=== PATIENT | female | born 1995 | race Caucasian/White ===

== ENCOUNTER 2021-07-28 20:59 | Emergency (ER) | payer MEDICAID ==
--- OUTSIDE RECORDS SUMMARY | 2021-07-28 21:03 | XMS REPORT | Clinical Summary ---
Author Author [facility] Organization [facility] Address Unknown Phone Unavailable Care Team Providers Care Tire Mold Engraver Name Role Phone Dpt Prateek, Pediatrics PCP Jacklyn Moore MD Unavailable Source Comments Some departments are not documenting in the electronic medical record. If you d o not see the information that you expected, contact Release of Information in [facility] Information Management department at [phone] for further assistan ce in locating additional records.[facility] Allergies No known active allergies Medications No known medications Active Problems Not on file Encounters Care Team Description Date Type Specialty Brett De La Garza MD Arrived 07/26/2021 Hospital Radiology Encounter Brett De La Garza MD Closed displaced fracture of head of lef t radius, initial encounter (Primary Dx) 07/26/2021 Office Visit Orthopedic Surgery 07/26/2021 Travel Brett De La Garza MD Left elbow pain (Primary Dx) 07/25/2021 Orders Only Orthopedic Surgery from Last 3 Months Social History Date Tobacco Use Types Packs/Day Years Used Never Assessed Sex Assigned at Date Recorded Not on file Date Recorded COVID-19 Exposure Response 07/26/2021 1:22 PM CORN HUSKER In the last month, have you been in contact with No / Unsure someone who was confirmed or suspected to have Coronavirus / COVID-19? Last Filed Vital Signs Reading Time Taken Comments Vital Sign 117/68 07/18/2011 4:52 PM CORN HUSKER Blood Pressure 85 07/18/2011 4:52 PM CORN HUSKER Pulse 36.2 C (97.2 F) 12/21/2009 4:53 PM CDT Temperature 16 07/18/2011 4:52 PM CORN HUSKER Respiratory Rate - - Oxygen Saturation - - Inhaled Oxygen Concentration 145.6 kg (321 lb) 07/26/2021 1:46 PM CORN HUSKER Weight 177.8 cm (5' 10") 07/26/2021 1:46 PM CORN HUSKER Height 46.06 07/26/2021 1:46 PM CORN HUSKER Body Mass Index Plan of Treatment Health Maintenance Due Date Last Done Comments HIV SCREENING 2011 DTAP/TDAP VACCINES (1 - 2014 Tdap) HEPATITIS C SCREENING 2014 PHYSICAL (COMPREHENSIVE) 2014 EXAM CERVICAL CANCER SCREENING 2017 INFLUENZA VACCINE 02/12/2021 HPV VACCINES Completed 09/01/2008, 03/24/2008, 07/29/2007 Procedures Comments Procedure Name Priority Date/Time Associated Diag nosis ELBOW MIN 3 VIEWS LEFT Routine 07/26/2021 Left el bow pain 1:52 PM CORN HUSKER from Last 3 Months Results * ELBOW MIN 3 VIEWS LEFT (07/26/2021 1:52 PM CORN HUSKER) Modality Anatomical Region Laterality Computed Radiography Elbow Left Specimen Impressions [facility] RESULTS - 07/26/2021 2:47 PM CORN HUSKER Findings and Impression: 1. Minimally displaced fracture of the radial head neck junction with a small elbow joint effusion. Fracture appears subacute with early healing. 2. Visualized joint spaces are maintai amilcar and normally aligned. By my electronic signature, I attest that I have personally reviewed the images for this examination and formulated the interpretations and opinions expressed in this report Finalized by Del Shepherd M.D. on 07/26/2021 2:47 PM. Dictated by Az Ngo D.O. on 07/26/2021 2:18 PM. Narrative [facility] RESULTS - 07/26/2021 2:47 PM CORN HUSKER ELBOW MIN 3 VIEWS LEFT Technique: 3 views of the left elbow were obtained. Clinical indication: Left elbow pain. Comparison: None Procedure Note Del Shepherd MD - 07/26/2021 ELBOW MIN 3 VIEWS LEFT Technique: 3 views of the left elbow were obtained. Clinical indication: Left elbow pain. Comparison: None IMPRESSION Findings and Impression: 1. Minimally displaced fracture of the radial head neck junction with a small elbow joint effusion. Fracture appears subacute with early healing. 2. Visualized joint spaces are maintain ed and normally aligned. By my electronic signature, I attest that I have personally reviewed the images for this examination and formulated the interpretations and opinions expressed in this report Finalized by Del Shepherd M.D. on 07/26/2021 2:47 PM. Dictated by Az Ngo D.O. on 07/26/2021 2:18 PM. Performing Organization Address City/State/ZIP Code P valentine Number [facility] RESULTS from Last 3 Months Insurance Type Payer Benefit Subscriber ID Effective Phone Address Plan / Dates Group [employer]ETNA MEDICAID AETNA [id number] 2020-P [phone] [id number] [place] [address], [place] [address] Advance Directives Patient Quantitative Consultant Explanation Type Date Recorded Advance Directive/DPOA Care Teams Start Date End Date Tire Mold Engraver Relationship Specialty 03/21/10 Dpt Prateek, Pediatrics PCP - General [address] [place] [address] 09/12/12 Jacklyn Moore MD Pediatrics [address] [phone]
--- OUTSIDE RECORDS SUMMARY | 2021-07-28 21:03 | XMS REPORT | Encounter Summary ---
Author Author [facility] Organization [facility] Address Unknown Phone Unavailable Care Team Providers Care Buck Swamper Name Role Phone Dpt Prateek Pediatrics PCP Jacklyn Moore MD Unavailable Reason for Referral * Radiology Services (Routine) - Pending Review Diagnoses / Procedures Referred By Contact Referred To Conta ct Specialty Diagnoses Left elbow pain Procedures ELBOW MIN 3 VIEWS LEFT Brett De La Garza MD [address] [facility] [address] Radiology Referral ID Status Reason Start Date Expiration Visits Vi sits Date Requested Authorized [id number] Pending 07/25/2021 07/25/2022 1 1 Review H MOLDER Reason for Visit * Radiology Services (Routine) - Pending Review Diagnoses / Procedures Referred By Contact Referred To Conta ct Specialty Diagnoses Left elbow pain Procedures ELBOW MIN 3 VIEWS LEFT Brett De La Garza MD [address] [facility] [address] Radiology Referral ID Status Reason Start Date Expiration Visits Vi sits Date Requested Authorized [id number] Pending 07/25/2021 07/25/2022 1 1 Review Encounter Details Care Team Description Date Type Department Brett De La Garza MD [address] [facility] [address] Arrived 07/26/2021 Hospital Imaging: Main [place] [facility], Encounter [facility] [address] [facility] [place] [address] Social History Date Tobacco Use Types Packs/Day Years Used Never Assessed Sex Assigned at Date Recorded Not on file Date Recorded COVID-19 Exposure Response 07/26/2021 1:22 PM DOUGH MOLDER In the last month, have you been in contact with No / Unsure someone who was confirmed or suspected to have Coronavirus / COVID-19? documented as of this encounter Plan of Treatment Not on filedocumented as of this encounter Procedures Comments Procedure Name Priority Date/Time Associated Diag nosis ELBOW MIN 3 VIEWS LEFT Routine 07/26/2021 Left el bow pain 1:52 PM DOUGH MOLDER documented in this encounter Results * ELBOW MIN 3 VIEWS LEFT (07/26/2021 1:52 PM DOUGH MOLDER) Modality Anatomical Region Laterality Computed Radiography Elbow Left Specimen Impressions [facility] RESULTS - 07/26/2021 2:47 PM DOUGH MOLDER Findings and Impression: 1. Minimally displaced fracture [...] [facility] RESULTS - 07/26/2021 2:47 PM DOUGH MOLDER ELBOW MIN 3 VIEWS LEFT Technique: 3 [...] Code P valentine Number [facility] RESULTS documented in this encounter Visit Diagnoses Diagnosis Left elbow pain Pain in joint, upper arm documented in this encounter Care Teams Start Date End Date Buck Swamper Relationship Specialty 03/21/10 Dpt Prateek, Pediatrics PCP - General [address] [place] [address] 09/12/12 Jacklyn Moore MD Pediatrics [address] [address] documented as of this encounter
--- OUTSIDE RECORDS SUMMARY | 2021-07-28 21:05 | XMS REPORT | Encounter Summary ---
Author Author [facility] Organization [facility] Address Unknown Phone Unavailable Care Team Providers Care Boat Rental Clerk Name Role Phone Dpt Prateek Pediatrics PCP Jacklyn Moore MD Unavailable Reason for Referral * Radiology Services (Routine) - Pending Review Diagnoses / Procedures Referred By Contact Referred To Conta ct Specialty Diagnoses Left elbow pain Procedures ELBOW MIN 3 VIEWS LEFT Brett De La Garza MD [address] [facility] [address] [place] [id number] Radiology Referral ID Status Reason Start Date Expiration Visits Vi sits Date Requested Authorized [id number] Pending 07/25/2021 07/25/2022 1 1 Review NUE CYCLE ADMINISTRATOR Encounter Details Care Team Description Date Type Department Brett De La Garza MD [address] [place] [address] [address] [place] [phone] Left elbow pain (Primary Dx) 07/25/2021 Orders Only Orthopedics and Spo rts Medicine: Main [place], [facility] [address] [place] [id number] Social History Date Tobacco Use Types Packs/Day Years Used Never Assessed Sex Assigned at Date Recorded Not on file documented as of this encounter Plan of Treatment Not on filedocumented as of this encounter Results * ELBOW MIN 3 VIEWS LEFT (07/26/2021 1:52 PM REVENUE CYCLE ADMINISTRATOR) Modality Anatomical Region Laterality Computed Radiography Elbow Left Specimen Impressions [facility] RESULTS - 07/26/2021 2:47 PM REVENUE CYCLE ADMINISTRATOR Findings and Impression: 1. Minimally displaced fracture [...] [facility] RESULTS - 07/26/2021 2:47 PM REVENUE CYCLE ADMINISTRATOR ELBOW MIN 3 VIEWS LEFT Technique: 3 [...] on 07/26/2021 2:18 PM. Performing Organization Address City/[facility] Code P valentine Number [facility] RESULTS documented in this encounter Visit Diagnoses Diagnosis Left elbow pain - Primary Pain in joint, upper arm Left elbow pain Pain in joint, upper arm documented in this encounter Care Teams Start Date End Date Boat Rental Clerk Relationship Specialty 03/21/10 Dpt Prateek Pediatrics PCP - General [address] [place] [address] 09/12/12 Jacklyn Moore MD Pediatrics [address] [phone] documented as of this encounter
--- OUTSIDE RECORDS SUMMARY | 2021-07-28 21:05 | XMS REPORT | Encounter Summary ---
Author Author [facility] Organization [facility] Address Unknown Phone Unavailable Care Team Providers Care Inspector Wire Products Name Role Phone Dpt Prateek, Pediatrics PCP Jacklyn Moore MD Unavailable Reason for Visit * Reason Comments Elbow Pain Left * Consult, Test & Treat (Routine) - Pending Review Diagnoses / Procedures Referred By Contact Referred To Conta ct Specialty Referral ID Status Reason Start Date Expiration Visits Vi sits Date Requested Authorized [id number] Pending 06/30/2021 06/30/2022 1 1 Review Encounter Details Care Team Description Date Type Department Brett De La Garza MD [address] [facility] [address] [place] [address] Closed displaced fracture of head of lef t radius, initial encounter (Primary Dx) 07/26/2021 Office Visit Orthopedics and Spo rts Medicine: Main [place], [facility] [address] [place] [address] Social History Date Tobacco Use Types Packs/Day Years Used Never Assessed Sex Assigned at Date Recorded Not on file Date Recorded COVID-19 Exposure Response 07/26/2021 1:22 PM PAINTER MAINTENANCE In the last month, have you been in contact with No / Unsure someone who was confirmed or suspected to have Coronavirus / COVID-19? documented as of this encounter Last Filed Vital Signs Reading Time Taken Comments Vital Sign - - Blood Pressure - - Pulse - - Temperature - - Respiratory Rate - - Oxygen Saturation - - Inhaled Oxygen Concentration 145.6 kg (321 lb) 07/26/2021 1:46 PM PAINTER MAINTENANCE Weight 177.8 cm (5' 10") 07/26/2021 1:46 PM PAINTER MAINTENANCE Height 46.06 07/26/2021 1:46 PM PAINTER MAINTENANCE Body Mass Index documented in this encounter Progress Notes * Brett De La Garza MD - 07/26/2021 2:00 PM PAINTER MAINTENANCE Chief Complaint Patient presents with Elbow Pain Left History of Present Illness: 26F w/ no significant PMH who presents to clinic today to be evaluated for L rad ial head fx after a fall 1 month ago. Pt fell down 3 stairs onto her left elbow. Immediate left elbow pain. No pain elsewhere. Denies hitting head. Seen at an [facility] facility where she was diagnosed with L radial head fx. Had numbness,ting ling after fall in her left ring and long fingers but all resolved 2 weeks ago. Was given a sling but hasn't needed it. Has decreased weight bearing due to pain in left elbow. The following portions of the patient's history were reviewed and updated as mary ropriate. Past Medical History: No past medical history on file. Past Surgical History: No past surgical history on file. Family History: No family history on file. Social History: Social History Socioeconomic History Marital status: Single Spouse name: Not on file Number of children: Not on file Years of education: Not on file Highest education level: Not on file Occupational History Not on file Tobacco Use Smoking status: Not on file Substance and Sexual Activity Alcohol use: Not on file Drug use: Not on file Sexual activity: Not on file Other Topics Concern Not on file Social History Narrative Not on file Current Medications: currently has no medications in their medication list. Allergies: has No Known Allergies. Review of Systems: Review of Systems All other systems reviewed and are negative. General Physical Exam: General/Constitutional:No apparent distress: well-nourished and well developed. Eyes: Sclera nonicteric, conjunctiva clear Respiratory:No shortness of breath or dyspnea Cardiac: No clubbing, cyanosis, or edema Vascular: No edema, swelling or tenderness, except as noted in detailed exam. Integumentary:No impressive skin lesions present, except as noted in detailed ex am. Neuro/Psych: Normal mood and affect, oriented to person, place and time. Musculoskeletal: Normal, except as noted in detailed exam and in HPI. Focused Physical Examination: Ht 177.8 cm (70") | Wt (!) 145.6 kg (321 lb) | BMI 46.06 kg/m The patient is alert and orientated to person, place, and time, is in no acute d istress, and is cooperative with the examination. Normocephalic, PERRLA, non-lab ored breathing. The left elbow has an intact soft tissue envelope. There is tenderness over the radiocapitellar joint and the radial head. No crepitance to ROM. No evidence of instability to coronal plane stress. No tenderness to palpation medially over the medial epicondyle. Biceps and Triceps are palpable and grossly intact. Pronation and supination is full. Flexion/Extension is full. Neurologic function is grossly intact to the bilateral upper limb, including Rad ial, Ulnar, Median, AIN, and PIN sensory-motor functions. No evidence of CRPS: n o dystrophic changes, abnormal hair growth, skin sweating. No evidence of dysva scular changes. L elbow evaluated, non tender to palpation, no swelling, no erythema, some tende rness with hyperpronation but full prono/supination present without any mechanical service specialist al block or pain. NVI distally Imaging: minimally displaced L radial head fx with partial progressive interval healing noted Assessment and Plan: 26F w/ no significant PMH who presents to clinic today to be evaluated for L rad ial head fx after a fall 1 month ago -Xrays show interval healing of L radial head fx, patient has full prono/supinat ion. At this time, we recommend weight bearing of 2lbs or less through her left elbow. After 4 weeks, she can being to increase her activety tolerated. This was explained to the pt and she showed understanding of the plan. She does not need to f/u in clinic but if any concerns come up or her symptoms do not resolve or worsen, she should f/u in clinic. She agreed to the plan. Brett De La Garza MD Director Print, Department of Orthopaedic Surgery [facility] TER MAINTENANCE documented in this encounter Plan of Treatment Not on filedocumented as of this encounter Visit Diagnoses Diagnosis Closed displaced fracture of head of le ft radius, initial encounter - Primary documented in this encounter Care Teams Start Date End Date Inspector Wire Products Relationship Specialty 03/21/10 Dpt Ku, Pediatrics PCP - General [facility] [place] [address] 09/12/12 Jacklyn Moore MD Pediatrics [address] [address] documented as of this encounter
--- NOTE | 2021-07-28 21:08 | ED EENT ---
History of Present Illness General Stated Complaint: RT EAR BLEED History of Present Illness Date Seen by Provider: Jul 28, 2021 Time Seen by Provider: 21:02 Initial Comments 26-year-old female presents with concerns for bleeding out of her right ear. She reports that happened this morning when she awoke. That she presented tonight to have it checked out ago still bleeding. She has cotton balls in both the ears because she has a "earwax problem" she states some mild discomfort in the right ear. No fevers chills or other systemic complaints. Allergies and Home Medications Patient Home Medication List Home Medication List Reviewed: Yes Cephalexin (Cephalexin) 500 Mg Tablet, 500 MG PO QID Prescribed by: KARY SOUZA on 07/28/212120 Review of Systems Review of Systems Constitutional: no symptoms reported Ears: See HPI Nose: no symptoms reported Throat: no symptoms reported Respiratory: no symptoms reported Cardiovascular: no symptoms reported Gastrointestinal: no symptoms reported Physical Exam Vital Signs Vital Signs - First Documented 07/28/21 21:02 Temp 36.4 Pulse 88 Resp 18 B/P (MAP) 124/82 (96) Pulse Ox 98 O2 Delivery Room Air Height, Weight, BMI Height: '" Weight: lbs. oz. kg; BMI Method: General Appearance: WD/WN, no apparent distress, obese Eyes: bilateral eye normal inspection Ears: bilateral ear auricle normal, bilateral ear canal normal, bilateral ear TM normal Cardiovascular: normal peripheral pulses Respiratory: no respiratory distress, no accessory muscle use Progress/Results/Core Measures Results/Orders Vital Signs/I&O 07/28/21 07/28/21 21:02 21:09 Temp 36.4 36.4 Pulse 88 88 Resp 18 18 B/P (MAP) 124/82 (96) 124/82 Pulse Ox 98 98 O2 Delivery Room Air Room Air Progress Progress Note : Progress Note When cotton ball was removed from bilateral ears, there was no discoloration or blood on the cotton ball. When looked with otoscope there is no blood in the canal on the TM noted. There was some mild cerumen but TMs were both visualized. As as finishing up patient's discharge paperwork, her significant other asked if I could look at her left great toe. Patient reports that she has had a longstanding ingrown toenail and has gotten some erythema and worsening redness around it. On exam looks as if she is got mild infection near an ingrown nail. Discussed with her that she needs to follow-up with her primary care provider or ham rolling machine operator to have her ingrown nail addressed but we would start her on some Keflex to help with the cellulitis and infection. Patient stable and discharged Departure Impression Primary Impression: Otalgia of right ear Additional Impression: Ingrowing toenail with infection Disposition: 01 HOME, SELF-CARE Condition: Stable Departure-Patient Inst. Patient Instructions: Ingrown Toenail (DC) Add. Discharge Instructions: Use [id number] earwax medication as instructed on package Please refrain from placing any Q-tips or other Follow-up with a ham rolling machine operator or establish care with a primary care provider for further management of your ingrown toenail Scripts Cephalexin (Cephalexin) 500 Mg Tablet 500 MG PO QID, #20 TAB 0 Refills Prov: KARY SOUZA DO 07/28/21 KARY SOUZA DO Jul 28, 2021 21:08
[2021-07-28 21:09] VITALS: BP 124/82
[2021-07-28] MEDS ORDERED: CEPH500T PO (21:21)
== END 2021-07-28 21:23 | disposition home or self-care (01) ==
LOC: ER FS 21:00
DX: H92.01 Otalgia, right ear (principal); L60.0 Ingrowing nail; E66.9 Obesity, unspecified
CPT/HCPCS: 99282

== ENCOUNTER 2021-08-02 23:05 | Emergency (ER) | payer MEDICAID ==
[~2021-08-02] VITALS: Ht 178 cm; Wt 145.8 kg
[~2021-08-02 23:05] MED LIST: CEPH500T PO
--- OUTSIDE RECORDS SUMMARY | 2021-08-02 23:13 | XMS REPORT | Encounter Summary ---
Author Author [facility] Organization [facility] Address Unknown Phone Unavailable Care Team Providers Care Manager Medicare Marketing Name Role Phone Dpiehsa Chandra, Pediatrics PCP Jacklyn Moore MD Unavailable Encounter Details Care Team Description Date Type Department 07/26/2021 Travel Social History Date Tobacco Use Types Packs/Day Years Used Never Assessed Sex Assigned at Date Recorded Not on file Date Recorded COVID-19 Exposure Response 07/26/2021 1:22 PM COLOR PASTE MIXER In the last month, have you been in contact with No / Unsure someone who was confirmed or suspected to have Coronavirus / COVID-19? documented as of this encounter Plan of Treatment Not on filedocumented as of this encounter Visit Diagnoses Not on filedocumented in this encounter Care Teams Start Date End Date Manager Medicare Marketing Relationship Specialty 03/21/10 Dpiesha Chandra Pediatrics PCP - General [address] [place] [address] 09/12/12 Jacklyn Moore MD Pediatrics [address] [address] documented as of this encounter
--- OUTSIDE RECORDS SUMMARY | 2021-08-02 23:13 | XMS REPORT | Encounter Summary ---
Author Author [facility] Organization [facility] Address Unknown Phone Unavailable Care Team Providers Care Business Librarian Name Role Phone Dpt Prateek, Pediatrics PCP Jacklyn Moore MD Unavailable Reason for Visit * Reason Comments Elbow Pain Left * Consult, Test & Treat (Routine) - Pending Review Diagnoses / Procedures Referred By Contact Referred To Conta ct Specialty Referral ID Status Reason Start Date Expiration Visits Vi sits Date Requested Authorized [id number] Pending 06/30/2021 06/30/2022 1 1 Review Encounter Details Care Team Description Date Type Department Brett De La Garza MD [address] [facility] [address] [place] [address] Closed displaced fracture of head of lef t radius, initial encounter (Primary Dx) 07/26/2021 Office Visit Orthopedics and Spo rts Medicine: Main [place], [facility] [address] [facility] [place] [address] Social History Date Tobacco Use Types Packs/Day Years Used Never Assessed Sex Assigned at Date Recorded Not on file Date Recorded COVID-19 Exposure Response 07/26/2021 1:22 PM POURER OFF In the last month, have you been [...] 145.6 kg (321 lb) 07/26/2021 1:46 PM POURER OFF Weight 177.8 cm (5' 10") 07/26/2021 1:46 PM POURER OFF Height 46.06 07/26/2021 1:46 PM POURER OFF Body Mass Index documented in this encounter Progress Notes * Brett De La Garza MD - 07/26/2021 2:00 PM POURER OFF Chief Complaint Patient presents with Elbow Pain Left History of Present Illness: 26F w/ no significant PMH who presents to clinic today to be evaluated for L rad ial head fx after a fall 1 month ago. Pt fell down 3 stairs onto her left elbow. Immediate left elbow pain. No pain elsewhere. Denies hitting head. Seen at an [facility] facility where she was diagnosed with L [...] hyperpronation but full prono/supination present without any farm implement engine mechanic al block or pain. NVI distally Imaging: [...] the plan. Brett De La Garza MD Quantitative Strategy Analyst, Department of Orthopaedic Surgery [facility] OFF documented in this encounter Plan of Treatment Not on filedocumented as of this encounter Visit Diagnoses Diagnosis Closed displaced fracture of head of le ft radius, initial encounter - Primary documented in this encounter Care Teams Start Date End Date Business Librarian Relationship Specialty 03/21/10 Dpt Ku, Pediatrics PCP - General [facility] [place] [address] 09/12/12 Jacklyn Moore MD Pediatrics [address] [address] documented as of this encounter
--- OUTSIDE RECORDS SUMMARY | 2021-08-02 23:13 | XMS REPORT | Clinical Summary ---
Author Author [facility] Organization [facility] Address Unknown Phone Unavailable Care Team Providers Care Android Framework Developer Name Role Phone Dpt Prateek, Pediatrics PCP Jacklyn Moore MD Unavailable Source Comments Some departments are not documenting in the electronic medical record. If you d o not see the information that you expected, contact Release of Information in [facility] [employer] Information Management department at [phone] for further assistan ce in locating additional records.[facility] Allergies No known active allergies Medications [...] Recorded COVID-19 Exposure Response 07/26/2021 1:22 PM WAFER FABRICATION OPERATOR In the last month, have you been in contact with No / Unsure someone who was confirmed or suspected to have Coronavirus / COVID-19? Last Filed Vital Signs Reading Time Taken Comments Vital Sign 117/68 07/18/2011 4:52 PM WAFER FABRICATION OPERATOR Blood Pressure 85 07/18/2011 4:52 PM WAFER FABRICATION OPERATOR Pulse 36.2 C (97.2 F) 12/21/2009 4:53 PM CDT Temperature 16 07/18/2011 4:52 PM WAFER FABRICATION OPERATOR Respiratory Rate - - Oxygen Saturation - - Inhaled Oxygen Concentration 145.6 kg (321 lb) 07/26/2021 1:46 PM WAFER FABRICATION OPERATOR Weight 177.8 cm (5' 10") 07/26/2021 1:46 PM WAFER FABRICATION OPERATOR Height 46.06 07/26/2021 1:46 PM WAFER FABRICATION OPERATOR Body Mass Index Plan of Treatment Health [...] 07/26/2021 Left el bow pain 1:52 PM WAFER FABRICATION OPERATOR from Last 3 Months Results * ELBOW MIN 3 VIEWS LEFT (07/26/2021 1:52 PM WAFER FABRICATION OPERATOR) Modality Anatomical Region Laterality Computed Radiography Elbow Left Specimen Impressions [facility] RAD RESULTS - 07/26/2021 2:47 PM WAFER FABRICATION OPERATOR Findings and Impression: 1. Minimally displaced fracture [...] [facility] RAD RESULTS - 07/26/2021 2:47 PM WAFER FABRICATION OPERATOR ELBOW MIN 3 VIEWS LEFT Technique: 3 [...] Plan / Dates Group AETNA MEDICAID AETNA [id number] 2020-P [phone] [id number] [place] [address], [place] [address] Advance Directives Patient Director Of Adult Epilepsy Explanation Type Date Recorded Advance Directive/DPOA Care Teams Start Date End Date Android Framework Developer Relationship Specialty 03/21/10 Dpt Prateek, Pediatrics PCP - General [address] [place] [address] 09/12/12 Jacklyn Moore MD Pediatrics [address] [phone]
--- OUTSIDE RECORDS SUMMARY | 2021-08-02 23:13 | XMS REPORT | Encounter Summary ---
Author Author [facility] Organization [facility] Address Unknown Phone Unavailable Care Team Providers Care Validation Architect Name Role Phone Dpt Prateek Pediatrics PCP Jacklyn Moore MD Unavailable Reason for Referral * Radiology Services (Routine) - Pending Review Diagnoses / Procedures Referred By Contact Referred To Conta [facility] Specialty Diagnoses Left elbow pain Procedures ELBOW MIN 3 VIEWS LEFT Brett De La Garza MD [address] [facility] [address] Radiology Referral ID Status Reason Start Date Expiration Visits Vi sits Date Requested Authorized [id number] Pending 07/25/2021 07/25/2022 1 1 Review TRICIAN OFFICE Reason for Visit * Radiology Services (Routine) - Pending Review Diagnoses / Procedures Referred By Contact Referred To Conta [facility] Specialty Diagnoses Left elbow pain Procedures ELBOW MIN 3 VIEWS LEFT Brett De La Garza MD [address] [facility] [address] Radiology Referral ID Status Reason Start Date Expiration Visits Vi sits Date Requested Authorized [id number] Pending 07/25/2021 07/25/2022 1 1 Review Encounter Details Care Team Description Date Type Department Brett De La Garza MD [address] [facility] [address] Arrived 07/26/2021 Hospital Imaging: Main April s, Encounter [facility] [address] [facility] [place] [address] Social History Date Tobacco Use Types Packs/Day Years Used Never Assessed Sex Assigned at Date Recorded Not on file Date Recorded COVID-19 Exposure Response 07/26/2021 1:22 PM ELECTRICIAN OFFICE In the last month, have you been in contact with No / Unsure someone who was confirmed or suspected to have Coronavirus / COVID-19? documented as of this encounter Discharge Disposition Code Departure Means Destination Disposition Home Home or Self Care documented in this encounter Plan of Treatment Not on filedocumented as of this encounter Procedures Comments Procedure Name Priority Date/Time Associated Diag nosis ELBOW MIN 3 VIEWS LEFT Routine 07/26/2021 Left el bow pain 1:52 PM ELECTRICIAN OFFICE documented in this encounter Results * ELBOW MIN 3 VIEWS LEFT (07/26/2021 1:52 PM ELECTRICIAN OFFICE) Modality Anatomical Region Laterality Computed Radiography Elbow Left Specimen Impressions [facility] RAD RESULTS - 07/26/2021 2:47 PM ELECTRICIAN OFFICE Findings and Impression: 1. Minimally displaced fracture [...] [facility] RAD RESULTS - 07/26/2021 2:47 PM ELECTRICIAN OFFICE ELBOW MIN 3 VIEWS LEFT Technique: 3 [...] encounter Care Teams Start Date End Date Validation Architect Relationship Specialty 03/21/10 Dpt Ku, Pediatrics PCP - General [address] [place] [address] 09/12/12 Jacklyn Moore MD Pediatrics [address] [address] documented as of this encounter
--- OUTSIDE RECORDS SUMMARY | 2021-08-02 23:13 | XMS REPORT | Encounter Summary ---
Author Author [facility] Organization [facility] Address Unknown Phone Unavailable Care Team Providers Care Stranner Name Role Phone Dpt Prateek Pediatrics PCP Jacklyn Moore MD Unavailable Reason for Referral * Radiology Services (Routine) - Pending Review Diagnoses / Procedures Referred By Contact Referred To Conta ct Specialty Diagnoses Left elbow pain Procedures ELBOW MIN 3 VIEWS LEFT Brett De La Garza MD [address] [employer] [facility] [address] [place] [id number] Radiology Referral ID Status Reason Start Date Expiration Visits Vi sits Date Requested Authorized [id number] Pending 07/25/2021 07/25/2022 1 1 Review MENT CONTROL SUPERVISOR Encounter Details Care Team Description Date Type Department Brett De La Garza MD [address] [employer] [facility] [address] [place] [id number] Left elbow pain (Primary Dx) 07/25/2021 Orders Only Orthopedics and Spo rts Medicine: Main [place], [facility] [address] [employer] [place] [id number] Social History Date Tobacco Use Types Packs/Day Years Used Never Assessed Sex Assigned at Date Recorded Not on file documented as of this encounter Plan of Treatment Not on filedocumented as of this encounter Results * ELBOW MIN 3 VIEWS LEFT (07/26/2021 1:52 PM DOCUMENT CONTROL SUPERVISOR) Modality Anatomical Region Laterality Computed Radiography Elbow Left Specimen Impressions [facility] RAD RESULTS - 07/26/2021 2:47 PM DOCUMENT CONTROL SUPERVISOR Findings and Impression: 1. Minimally displaced fracture [...] [facility] RAD RESULTS - 07/26/2021 2:47 PM DOCUMENT CONTROL SUPERVISOR ELBOW MIN 3 VIEWS LEFT Technique: 3 [...] on 07/26/2021 2:18 PM. Performing Organization Address [facility] Code P valentine Number KU RAD RESULTS documented in this encounter Visit Diagnoses Diagnosis Left elbow pain - Primary Pain in joint, upper arm Left elbow pain Pain in joint, upper arm documented in this encounter Care Teams Start Date End Date Stranner Relationship Specialty 03/21/10 Dpt Prateek Pediatrics PCP - General [address] [place] [address] 09/12/12 Jacklyn Moore MD Pediatrics [address] [phone] documented as of this encounter
[2021-08-02] MEDS ORDERED: KETOROLAC 30 MG/ML VIAL IVP ONE (23:30)
[2021-08-02] MEDS ORDERED: ONDANSETRON 4 MG/2 ML (SDV) Z0FRAN IVP ONE (23:30)
--- NOTE | 2021-08-02 23:31 | ED Abdominal Pain ---
General Chief Complaint: Abdominal/GI Problems Stated Complaint: ABD PAIN ON BOTH SIDES Nursing Triage Note: C/O INTERMITTANT BILATERAL LOWER ABDOMINAL PAIN, NAUSEA X1 DAY. Source of Information: Patient Exam Limitations: No Limitations History of Present Illness Date Seen by Provider: Aug 02, 2021 Time Seen by Provider: 23:24 Initial Comments Patient is 26you female to the ER with a complaint of sharp lower abdominal pain, coming in "waves" since last night. She states it feels like "contractions" in her lower abdomen. She is nauseated - has not taken anything for the pain, out of concern she might just throw up any medications she takes. Decreased appetite, has not really drank any fluids today. No fevers, no SOB, cough or URI symptoms. Not covid vaccinated. No covid concerns. Has an implanted control for the last 2 years - does not have periods. No abnormal vaginal discharge. No diarrhea, no black or bloody stools - last BM was yesterday. rates her pain anywhere form a "6-10". Never had pain like this before - has taken several "at home" preg tests, all negative. Previous cholecystectomy a couple of years ago. All other ROS reviewed and negative except as stated. Timing/Duration: 24 Hours Severity/Quality: Severe, Sharp Location: Other (bilateral lower quadrants) Radiation: No Radiation Activities at Onset: None Associated Symptoms: Nausea/Vomiting (nausea without vomiting) Allergies and Home Medications Allergies Coded Allergies: latex (Verified Allergy, Unknown, 08/02/21) Patient Home Medication List Home Medication List Reviewed: Yes Cephalexin (Cephalexin) 500 Mg Tablet, 500 MG PO QID Prescribed by: KARY SOUZA on 07/28/212120 Dicyclomine HCl (Dicyclomine HCl) 20 Mg Tablet, 20 MG PO Q6H PRN for abdominal cramping Prescribed by: CASSIA SINGH on 08/03/2132 Ondansetron (Ondansetron Odt) 4 Mg Tab.rapdis, 4 MG PO Q8H PRN for nausea Prescribed by: CASSIA SINGH on 08/03/2132 Review of Systems Review of Systems Constitutional: see HPI EENTM: No Symptoms Reported Respiratory: No Symptoms Reported Cardiovascular: No Symptoms Reported Gastrointestinal: Abdominal Pain, Nausea Genitourinary: No Symptoms Reported Musculoskeletal: no symptoms reported Skin: no symptoms reported All Other Systems Reviewed Negative Unless Noted: Yes Past Ektbfnz-Fxzxmo-Vnogwk Hx Patient Social History Tobacco Use?: Yes Substance use?: No Alcohol Use?: No Pt feels they are or have been: No Past Medical History Surgery/Hospitalization HX: CHOLECYSTECTOMY Physical Exam Vital Signs Vital Signs - First Documented 08/02/21 23:12 Temp 36.9 Pulse 113 Resp 18 B/P (MAP) 129/94 (106) Pulse Ox 99 O2 Delivery Room Air Capillary Refill : Less Than 3 Seconds Height/Weight/BMI Height: '" Weight: lbs. oz. kg; 46.00 BMI Method: General Appearance: WD/WN, no apparent distress HEENT: PERRL/EOMI Neck: normal inspection Respiratory: lungs clear, normal breath sounds, no respiratory distress, no accessory muscle use Cardiovascular: regular rate, rhythm Gastrointestinal: normal bowel sounds, soft, tenderness (bilateral lower quadrants, up to the unbilicus; no rebound; no masses palpable; no erythema or rashes), other (obese) Extremities: normal range of motion, non-tender, normal inspection, no pedal edema, normal capillary refill Neurologic/Psychiatric: no motor/sensory deficits, alert, normal mood/affect, oriented x 3 Skin: normal color, warm/dry, other (mild erythema lateral aspect of great toenail. slight erythema. ttp; no fluctuance or pus) Progress/Results/Core Measures Results/Orders Lab Results Laboratory Tests Test 08/02/21 23:20 08/02/21 23:34 Range/Units Urine Color YELLOW Urine Clarity SL CLOUDY Urine pH 6.0 5-9 Urine Specific [place] 1.020 1.016-1.022 Urine Protein NEGATIVE NEGATIVE Urine Glucose (UA) NEGATIVE NEGATIVE Urine Ketones NEGATIVE NEGATIVE Urine Nitrite NEGATIVE NEGATIVE Urine Bilirubin NEGATIVE NEGATIVE Urine Urobilinogen 1.0 < = 1.0 MG/DL Urine Leukocyte Esterase 2+ H NEGATIVE Urine RBC (Auto) NEGATIVE NEGATIVE Urine RBC NONE /HPF Urine WBC 0-2 /HPF Urine Squamous Epithelial Cells 5-10 /HPF Urine Crystals NONE /LPF Urine Bacteria TRACE /HPF Urine Casts NONE /LPF Urine Mucus SMALL H /LPF Urine Culture Indicated NO White Blood Count 10.6 4.3-11.0 10^3/uL Red Blood Count 5.14 H 3.80-5.11 10^6/uL Hemoglobin 12.6 11.5-16.0 g/dL Hematocrit 41 35-52 % Mean Corpuscular Volume 79 L 80-99 fL Mean Corpuscular Hemoglobin 25 25-34 pg Mean Corpuscular Hemoglobin Concent 31 L 32-36 g/dL Red Cell Distribution Width 14.5 10.0-14.5 % Platelet Count 339 130-400 10^3/uL Mean Platelet Volume 11.1 9.0-12.2 fL Immature Granulocyte % (Auto) 0 % Neutrophils (%) (Auto) 54 42-75 % Lymphocytes (%) (Auto) 32 12-44 % Monocytes (%) (Auto) 8 0-12 % Eosinophils (%) (Auto) 6 0-10 % Basophils (%) (Auto) 1 0-10 % Neutrophils # (Auto) 5.7 1.8-7.8 10^3/uL Lymphocytes # (Auto) 3.4 1.0-4.0 10^3/uL Monocytes # (Auto) 0.8 0.0-1.0 10^3/uL Eosinophils # (Auto) 0.6 H 0.0-0.3 10^3/uL Basophils # (Auto) 0.1 0.0-0.1 10^3/uL Immature Granulocyte # (Auto) 0.0 0.0-0.1 10^3/uL Sodium Level 138 135-145 MMOL/L Potassium Level 4.0 3.6-5.0 MMOL/L Chloride Level 106 98-107 MMOL/L Carbon Dioxide Level 20 L 21-32 MMOL/L Anion Gap 12 5-14 MMOL/L Blood Urea Nitrogen 9 7-18 MG/DL Creatinine 0.80 0.60-1.30 MG/DL Estimat Glomerular Filtration Rate 105 BUN/Creatinine Ratio 11 Glucose Level 88 70-105 MG/DL Calcium Level 9.1 8.5-10.1 MG/DL Corrected Calcium 9.1 8.5-10.1 MG/DL Total Bilirubin 0.3 0.1-1.0 MG/DL Aspartate Amino Transf (AST/SGOT) 13 5-34 U/L Alanine Aminotransferase (ALT/SGPT) 16 0-55 U/L Alkaline Phosphatase 78 40-136 U/L Total Protein 7.9 6.4-8.2 GM/DL Albumin 4.0 3.2-4.5 GM/DL My Orders Orders - SAMANTHA,CASSIA M MD Urine Bedside (08/02/21 23:27) Ed Iv/Invasive Line Start (08/02/21 23:27) Cbc With Automated Diff (08/02/21 23:27) Comprehensive Metabolic Panel (08/02/21 23:27) Ua Culture If Indicated (08/02/21 23:27) Ketorolac Injection (Toradol Injection) (08/02/21 23:30) Ondansetron Injection (Zofran Injectio (08/02/21 23:30) Medications Given in ED Current Medications Medications Dose Ordered Sig/Boubacar Route Start Time Stop Time Status Last Admin Dose Admin Ketorolac Tromethamine 15 mg ONCE ONCE IVP 08/02/21 23:30 08/02/21 23:32 DC 08/02/21 23:59 15 MG Ondansetron HCl 8 mg ONCE ONCE IVP 08/02/21 23:30 08/02/21 23:32 DC 08/02/21 23:59 8 MG Vital Signs/I&O 08/02/21 23:12 Temp 36.9 Pulse 113 Resp 18 B/P (MAP) 129/94 (106) Pulse Ox 99 O2 Delivery Room Air Blood Pressure Mean: 106 Progress Progress Note : Time: 00:27 Progress Note Patient's labs reviewed and all WNL. No leukocytosis, no abnormal chemistries. UA clean. Urine preg negative (bedside ED). VSS. rechecked after toradol and nausea medications - nausea improved. Will send home with conservative care, nausea meds and bentyl. return precautions given. Patient verbalizes understanding and all questions are sought and answered. Departure Impression Primary Impression: Abdominal pain Qualified Codes: R10.30 - Lower abdominal pain, unspecified Disposition: 01 HOME, SELF-CARE Condition: Stable Departure-Patient Inst. Decision time for Depature: 00:29 Referrals: [facility] CHRISTO,LOCAL PHYSICIAN (PCP) Primary Care Physician Patient Instructions: Abdominal Pain, Adult ED Add. Discharge Instructions: Follow a clear liquid diet for the next 6 to 12 hours then a bland diet and advance as tolerated if your symptoms are improving. I have written you a prescription for some nausea medications as well as dicyclomine. Take the Dicyclomine 20mg, every 6 hours as needed for abdominal cramping/pain. Nausea medicines as needed every 8 hours. If you develop a fever, worsening/localized pain in your belly, vomiting, diarrhea or you pass blood in your stools please come back to the emergency room for reevaluation I have given you contact information for [facility]. Please call for a follow-up appointment. You should fill the prescription for the antibiotic for your toe, also warm soaks (epsom salt) for your toe. Return to the emergency room for any new, concerning or emergent complaints Scripts Dicyclomine HCl (Dicyclomine HCl) 20 Mg Tablet 20 MG PO Q6H PRN for abdominal cramping, #20 TAB Prov: CASSIA SINGH MD 08/03/21 Ondansetron (Ondansetron Odt) 4 Mg Tab.rapdis 4 MG PO Q8H PRN for nausea, #15 TAB Prov: CASSIA SINGH MD 08/03/21 CASSIA SINGH MD Aug 02, 2021 23:31
[2021-08-02 23:33] LABS: BILIRUBIN,URINE NEGATIVE (NEGATIVE); CLARITY,URINE SL CLOUDY; COLOR,URINE YELLOW; GLUCOSE, URINE (UA) NEGATIVE (NEGATIVE); KETONES,URINE NEGATIVE (NEGATIVE); LEUKOCYTE ESTERASE ,URINE 2+ (NEGATIVE); NITRITE,URINE NEGATIVE (NEGATIVE); PROTEIN,URINE NEGATIVE (NEGATIVE)
[2021-08-02 23:41] LABS: BACTERIA,URINE TRACE /HPF; WBC,URINE 0-2 /HPF
[2021-08-03 00:04] LABS: BASOPHILS # (AUTO) 0.1 10^3/uL (0.0-0.1); BASOPHILS % (AUTO) 1 % (0-10); EOSINOPHILS # (AUTO) 0.6 10^3/uL (0.0-0.3); EOSINOPHILS % (AUTO) 6 % (0-10); HEMATOCRIT 41 % (35-52); HEMOGLOBIN 12.6 g/dL (11.5-16.0); LYMPHOCYTES # (AUTO) 3.4 10^3/uL (1.0-4.0); LYMPHOCYTES % (AUTO) 32 % (12-44); MEAN CORPUSCULAR HEMOGLOBIN 25 pg (25-34); MEAN CORPUSCULAR HGB CONC 31 g/dL (32-36); MEAN CORPUSCULAR VOLUME 79 fL (80-99); MEAN PLATELET VOLUME 11.1 fL (9.0-12.2); MONOCYTES # (AUTO) 0.8 10^3/uL (0.0-1.0); MONOCYTES % (AUTO) 8 % (0-12); NEUTROPHILS # (AUTO) 5.7 10^3/uL (1.8-7.8); NEUTROPHILS % (AUTO) 54 % (42-75); PLATELET COUNT 339 10^3/uL (130-400); WHITE BLOOD COUNT 10.6 10^3/uL (4.3-11.0)
[2021-08-03 00:15] LABS: CALCIUM 9.1 MG/DL (8.5-10.1)
[2021-08-03 00:16] LABS: TOTAL PROTEIN 7.9 GM/DL (6.4-8.2)
[2021-08-03 00:18] LABS: BILIRUBIN,TOTAL 0.3 MG/DL (0.1-1.0)
[2021-08-03 00:20] LABS: CREATININE SERUM 0.8 MG/DL (0.60-1.30)
[2021-08-03] MEDS ORDERED: DICY20TA PO (00:33)
[2021-08-03] MEDS ORDERED: ONDA4TAB11 PO (00:33)
[2021-08-03 00:36] VITALS: BP 128/89
== END 2021-08-03 00:39 | disposition home or self-care (01) ==
LOC: EDUNIT# 23:05 → ER 23:09
DX: R10.31 Right lower quadrant pain (principal); R10.32 Left lower quadrant pain; R11.0 Nausea; F17.200 Nicotine dependence, unspecified, uncomplicated; Z90.49 Acquired absence of other specified parts of digestive tract; Z91.040 Latex allergy status; Z32.02 Encounter for pregnancy test, result negative
CPT/HCPCS: 36415; 80053; 81000; 84703; 85025